=== PATIENT | male | born 1970 ===

== ENCOUNTER 2017-01-02 05:12 | Inpatient (IN) | payer OTHER ==
[2017-01-02] VITALS (14 sets, daily range): BP systolic 118–146; BP diastolic 70–83
[~2017-01-02] VITALS: Ht 175.3 cm; Wt 86.2 kg
[~2017-01-02 05:12] MED LIST: NKM; oxyCONTIN 20mg tab ORAL ONE
[2017-01-02] MEDS ORDERED: oxyCONTIN 20mg tab ORAL ONE (06:00)
[2017-01-02] MEDS ORDERED: celeBREX 200mg Cap **SURGERY PATIENTS ONLY ORAL ONE (06:00)
[2017-01-02] MEDS ORDERED: ceFAZolin 1gm in D5W 55ml IVP ONE (06:00)
[2017-01-02] MEDS ORDERED: NS Irrig 1000ml ONE (06:00)
[2017-01-02] MEDS ORDERED: LR 1000ml ONE ×2 (06:00→07:00)
[2017-01-02] MEDS ORDERED: Sterile Water Irrig 1000ml IRRIG ONE (06:00)
[2017-01-02] MEDS ORDERED: Bacitracin 50000 Units Vial ONE (06:30)
[2017-01-02] MEDS ORDERED: Duramorph PF 5mg/10ml amp ONE (06:30)
--- NOTE | 2017-01-02 06:47 | Pre-Procedure Note/Attestation ---
Pre-Procedure Note/Attestation Complete Prior to Procedure Planned Procedure: left Procedure Narrative: left total hip arthroplasty Indications for Procedure Pre-Operative Diagnosis: left hip arthritis Attestation I attest that I discussed the nature of the procedure; its benefits; risks and complications; and alternatives (and the risks and benefits of such alternatives ), prior to the procedure, with the patient (or the patient's legal patient accounting representative). I attest that, if there was a reasonable possibility of needing a blood transfusion, the patient (or the patient's legal patient accounting representative) was given the [facility] standardized written summary, pursuant to the Terry Brenda Blood Safety Act ([place] Health and Safety Code # 1645, as amended). I attest that I re-evaluated the patient just prior to the surgery and that there has been no change in the patient's H&P, except as documented below: NONE COLIN LEAL January 02, 2017 06:47
[2017-01-02] MEDS ORDERED: fentaNYL 100 mcg/2 mL IV ONE (07:00)
[2017-01-02] MEDS ORDERED: Propofol 10mg/ml 100ml btl IV ONE (07:00)
[2017-01-02] MEDS ORDERED: D5 1/2NS w/KCl 20mEq 1,000 ML IV SCH (07:04)
[2017-01-02] MEDS ORDERED: Norco 5mg/325mg tab ORAL PRN (07:15)
[2017-01-02] MEDS ORDERED: HYDROmorphone 1mg/ml Carpuject SUBQ PRN (07:15)
[2017-01-02] MEDS ORDERED: Milk of Magnesia 30ml Ud ORAL PRN (07:15)
[2017-01-02] MEDS ORDERED: Tranexamic Acid 1,000 MG in NS 55 ML IV ONE (07:30)
[2017-01-02] MEDS ORDERED: Tranexamic Acid 1,000 MG in NS 65 ML IV ONE (07:30)
[2017-01-02] MEDS ORDERED: Tranexamic Acid 1,000 MG in NS 110 ML IVPB SCH (08:00)
[2017-01-02] MEDS ORDERED: LR 1000ml 1,000 ML IVLG SCH (08:02)
--- NOTE | 2017-01-02 08:02 | Anethesia Preoperative Eval ---
Anesthesia Pre-op PMH/ROS General Date of Evaluation: January 02, 2017 Time of Evaluation: 06:50 Anesthesiologist: Luz ASA Score: ASA 2 Mallampati Score Class I : Soft palate, uvula, fauces, pillars visible Class II: Soft palate, uvula, fauces visible Class III: Soft palate, base of uvula visible Class IV: Only hard plate visible Mallampati Classification: Class II Surgeon: Beba Diagnosis: L hip DJD Surgical Procedure: L total hip arthroplasty Anesthesia History: none Family History: no anesthesia problems Allergies: Coded Allergies: No Known Allergies (Unverified , 12/28/16) Medications: see eMAR Past Medical History Cardiovascular: Denies: CAD, HTN, CT, arrhythmia, other, valve dz Pulmonary: Denies: COPD, ULICES, asthma, other Gastrointestinal/Genitourinary: Reports: GERD - mild, Denies: CRI, ESRD, other Neurologic/Psychiatric: Reports: other - chronic pain, Denies: CVA, TIA, dementia, depression/anxiety Endocrine: Denies: DM, hypothyroidism, other, steroids HEENT: Denies: [place] (L), [place] (R), cataract (L), cataract (R), glaucoma, other Hematology/Immune: Denies: DVT, anemia, bleeding disorder, other Musculoskeletal/Integumentary: Reports: DJD, Denies: DDD, OA, RA, edema, other PMH Narrative: as above PSxH Narrative: bilateral feet Anesthesia Pre-op Phys. Exam Physician Exam Last Vital Signs Date Time Temp Pulse Resp B/P Pulse Ox O2 Delivery O2 Flow Rate FiO2 01/02/17 05:48 97.7 60 18 123/78 99 Room Air Constitutional: NAD Neurologic: CN 2-12 intact Cardiovascular: RRR, no M/R/G Respiratory: CTA Gastrointestinal: S/NT/ND Airway Exam Mallampati Score: Class II MO: full Neck: flexible ROM: full Teeth: intact Dentures: no lower, no upper Anesthesia Pre-op A/P Labs see chart Studies Pre-op Studies: EKG, CXR Risk Assessment & Plan Assessment: ASA 2 Plan: SAB with intrathecal Duramorph vs GA. Status Change Before Surgery: No Pre-Antibiotics Drug: Ancef 2gr. Given Within 1 Hr of Incision: Yes Time Given: 07:45 YESENIA OZUNA M.D. January 02, 2017 08:02
[2017-01-02] MEDS ORDERED: DiphenhydrAMINE 50mg/ml Inj IVP PRN (08:15)
[2017-01-02] MEDS ORDERED: Meperidine 25mg/0.5ml Inj IM PRN (08:15)
[2017-01-02] MEDS ORDERED: Hydromorphone 0.5mg/0.5ml inj IVP PRN (08:15)
--- NOTE | 2017-01-02 09:34 | Brief Operative Note ---
Immediate Post Operative Note Operative Note Chief Complaint: left hip pain Pre-op Diagnosis: left hip arthritis Procedure: left tung Post-op Diagnosis: same as pre-op Findings: consistent w/pre-op dx studies Surgeon: md dru Trench Pipe Layer Helper: stefanie burgess Anesthesiologist: md dipika Anesthesia: general Specimen: yes Complications: none Condition: stable Estimated Blood Loss: minimal Drains: none Implant(s) used?: Yes - merritt and nephRAYSA Burkett January 02, 2017 09:34
--- NOTE | 2017-01-02 12:23 | Immediate Post-Op Evaluation ---
Immediate Post-Op Evalulation Immediate Post-Op Evalulation Procedure: L total hip arthroplasty Date of Evaluation: January 02, 2017 Time of Evaluation: 09:38 IV Fluids: 1500 Blood Products: none Estimated Blood Loss: 150 Urinary Output: 100 Blood Pressure Systolic: 116 Blood Pressure Diastolic: 58 Pulse Rate: 72 Respiratory Rate: 20 O2 Sat by Pulse Oximetry: 98 Temperature (Fahrenheit): 97.6 Pain Score (1-10): 1 Nausea: No Vomiting: No Complications none Patient Status: awake, patent, none Hydration Status: adequate YESENIA OZUNA M.D. January 02, 2017 12:23
--- NOTE | 2017-01-02 12:46 | Diagnostic Imaging Report ---
Indication: pain Findings: Single AP view of the pelvis was performed. Left total hip arthroplasty noted. On this single projection, no alignment issues identified. No fracture identified. Theodore catheter noted. Osteoarthritis of the right hip is present. Impression: Status post left total hip replacement
--- NOTE | 2017-01-02 13:06 | Diagnostic Imaging Report ---
Indication: pain Findings: Single AP view of the pelvis was performed. Intraoperative portable x-ray of the lower pelvis demonstrates a left total hip replacement in progress. Theodore catheter is noted. Impression: Intraoperative imaging during left hip replacement
[2017-01-02] MEDS: Docusate 100mg cap ORAL SCH ×2 (14:46→18:01)
[2017-01-02] MEDS: D5 1/2NS w/KCl 20mEq 1,000 ML IV SCH (14:46)
[2017-01-02] MEDS: ceFAZolin sod 2 GM in D5W 110 ML IV SCH ×2 (15:59→23:30)
--- NOTE | 2017-01-02 19:22 | General Progress Note ---
Assessment/Plan Status Narrative s/p THR Perioperative expected bloo dloss Assessment/Plan PT OT DVT PROPHYALXIS ERIOPERATIVE ANTIBIOTIC PROPHYALIXS PAIN CONTORL Subjective Date patient seen: January 02, 2017 Time patient seen: 19:21 Constitutional: Reports: no symptoms HEENT: Reports: no symptoms Cardiovascular: Reports: no symptoms Respiratory: Reports: no symptoms Genitourinary: Reports: no symptoms Allergies: Coded Allergies: No Known Allergies (Unverified , 12/28/16) Objective Last 24 Hour Vital Signs Date Time Temp Pulse Resp B/P Pulse Ox O2 Delivery O2 Flow Rate FiO2 01/02/17 16:24 98.0 80 20 138/78 98 Room Air 01/02/17 14:30 98.2 82 20 144/82 99 Room Air 01/02/17 12:30 97.3 78 20 146/78 99 Room Air 01/02/17 12:23 72 20 98 01/02/17 11:30 97.2 70 16 133/77 100 Nasal Cannula 2.0 01/02/17 11:00 97.8 60 18 120/81 99 Nasal Cannula 3.0 01/02/17 10:45 62 18 125/75 97 Nasal Cannula 3.0 01/02/17 10:30 63 16 129/80 96 Nasal Cannula 3.0 01/02/17 10:15 61 18 133/83 100 Nasal Cannula 3.0 01/02/17 10:00 58 15 118/78 100 Simple Mask 6.0 01/02/17 09:45 59 14 128/74 100 Simple Mask 6.0 01/02/17 09:30 66 15 141/70 100 Simple Mask 6.0 01/02/17 09:23 97.5 70 18 123/78 100 Simple Mask 6.0 01/02/17 05:48 97.7 60 18 123/78 99 Room Air Intake and Output 01/01/17 01/02/17 19:00 07:00 # Voids 1 Height (Feet): 5 Height (Inches): 9.00 Weight (Pounds): 190 General Appearance: WD/WN EENT: PERRL/EOMI Neck: supple Cardiovascular: normal peripheral pulses, regular rhythm, no JVD Respiratory/Chest: lungs clear Abdomen: non tender, soft CRICKET GUTIERREZ January 02, 2017 19:22
[2017-01-02] MEDS: oxyCONTIN 20mg tab ORAL SCH (20:55)
[2017-01-02] MEDS: Norco 7.5mg/325mg tab ORAL PRN (20:56)
--- NOTE | 2017-01-02 21:38 | Operative Note - Dictated ---
DATE OF OPERATION: 01/02/2017 PREOPERATIVE DIAGNOSIS: Left hip end-stage arthritis. POSTOPERATIVE DIAGNOSIS: Left hip end-stage arthritis. PROCEDURE: Left total hip arthroplasty using M[employer]hew system size 54 acetabular cup, with a size 7 anthology proximally coated stem, with a 20-degree lip ultra cross-linked polyethylene, with a 36 mm Oxinium head. SURGEON: Burt Yoder M.D. TANNING WHEEL FILLER: Ekaterina Contreras PA-C. ANESTHESIOLOGIST: Tariq Escobar M.D. ANESTHESIA: General endotracheal anesthesia. ESTIMATED BLOOD LOSS: 150 mL. COMPLICATIONS: None. BRIEF HISTORY: The patient is a pleasant 46-year-old gentleman, who has had ongoing left hip pain. His x-ray showed end-stage arthritis. He failed nonoperative treatment. After full discussion of risks and benefits of the surgeon and complications associated with it including infection, bleeding, neurovascular complication, possibility of leg length discrepancy, DVT, PEs, and other complication that may arise, he opted for surgical treatment as described above. OPERATIVE PROCEDURE: The patient was brought to the operating table and was placed supine. All pressure points well padded. General endotracheal anesthesia was induced. Left foot was prepped and draped in the usual sterile fashion. After that the patient was placed in right lateral decubitus position. All pressure points were padded. The patient was stabilized using pegboard. The left hip was prepped and draped in the usual sterile fashion. The standard posterior lateral approach to the hip was then taken and the tensor fascia and gluteal fascia was opened and retractors were placed in. Short external rotators were released and the capsule was teed. The hip was dislocated and a standard femoral neck cut was performed. The femoral head was removed. The anterior acetabular retractors were placed and appropriate retractors were placed around the hip and acetabulum was exposed, the labrum was resected, and sequential reaming of the acetabulum was performed to medialize slightly. At this point, sequential reaming was performed in about 40 degrees of anteversion and 45 degrees of inclination to a 54 mm reaming. Once this was completed, the trialing was performed and 54 mm acetabulum appeared to be a good size. At this point, a 54 mm R3 acetabulum with 3 dome screw holes were placed in and locked in appropriate anteversion and inclination without any complication. Once this was completed, the stability was checked and it was excellent. However, two additional screws 125 mm and 120 mm was placed for additional security. This provided excellent positioning and stability of the acetabular cup. At this point, a 20-degree lip poly was then locked in after the area was thoroughly irrigated and the security of the locking of the polyethylene was checked and it was excellent. Once this was completed, the retractors were removed and care was given to the femur. The retractors were removed around the acetabulum. The retractors were placed around the femur. arc cutter plasma arc was used to lateralize and canal finder was used. Sequential broaching was performed all the way up to size 7 broach, which provided excellent fill of the canal and good rotational axial stability. At this point, the size 7 broach was placed in and a standard neck and a 36 mm head was applied and the whole construct was reduced. Range of motion was checked, leg length was checked, and stability was checked. There was excellent range of motion. Leg lengths were equal and stability was checked at 0 to 30 degrees 45 degrees, and 90 degrees of flexion all the way up to about 70 degrees internal rotation with excellent stability. At this point, the intraoperative x-rays were obtained and all positions were checked and appeared to be perfect. The left hip was then dislocated and the trial components were removed and the hip was thoroughly irrigated using copious amount of fluid. At this point, size 7 anthology stem was placed in and locked in without any complication. At this point, trialing was performed. Again 0 length head with 36 mm head was then applied and was reduced back into the femoral screws back without any complications. An Oxinium head was used and Chapa taper was dried prior to locking the head onto the neck. Once this was completed, the position, range of motion, stability was rechecked and it was excellent stability and a great range of motion of the hip. At this point, the short external rotators were repaired using a drill hole and #2 FiberWire suture. The capsule was repaired back onto the trochanter. The tensor fascia was then closed using #1 Vicryl suture. Subcutaneous tissue was closed using 2-0 Vicryl suture. Skin was closed using 3-0 Monocryl suture. All instrument counts and lap counts were correct. Intraoperative x-rays were obtained and there was excellent position of the instruments and leg lengths appeared to be equal. Burt Yoder M.D. DR: Sally JOB#: [id number] CC: SHABANA
[2017-01-03] MEDS: D5 1/2NS w/KCl 20mEq 1,000 ML IV SCH ×2 (03:14→16:40)
[2017-01-03 04:00] VITALS: BP 144/87
[2017-01-03 06:12] LABS: BASOPHILS % (AUTO) 0.7 % (0.0-2.0); LYMPHOCYTES % (AUTO) 14.5 % (20.0-45.0); MEAN CORPUSCULAR HEMOGLOBIN 31.8 PG (27.0-31.0); MEAN CORPUSCULAR HGB CONC 34.6 G/DL (32.0-36.0); MEAN CORPUSCULAR VOLUME 92 FL (80-99); MEAN PLATELET VOLUME 7.5 FL (6.5-10.1); MONOCYTES % (AUTO) 14.6 % (1.0-10.0); NEUTROPHILS % (AUTO) 69.2 % (45.0-75.0); PLATELET COUNT 242 K/UL (150-450); RED BLOOD COUNT 3.83 M/UL (4.70-6.10); RED CELL DISTRIBUTION WIDTH 11.4 % (11.6-14.8)
[2017-01-03 06:40] LABS: ANION GAP 11 (5-15); CALCIUM 8.2 mg/dL (8.6-10.2); CARBON DIOXIDE 31 mEQ/L (20-30); CHLORIDE 95 mEQ/L (98-107); CREATININE 0.9 mg/dL (0.7-1.2); GLOMERULAR FILTRATION RATE > 60 mL/min (>60); HEMOLYSIS 4; SODIUM 137 mEQ/L (135-145)
[2017-01-03 07:55] VITALS: BP 132/70
--- NOTE | 2017-01-03 08:21 | Orthopedic Progress Note ---
Orthopedic - Progress Note Subjective Symptoms: c/o post-op hip pain, other - febrile overnight and this morning. WBC normal Objective Vital Signs Laboratory Tests Test 01/03/17 05:20 White Blood Count 9.0 K/UL (4.8-10.8) Red Blood Count 3.83 M/UL (4.70-6.10) L Hemoglobin 12.2 G/DL (14.2-18.0) L Hematocrit 35.3 % (42.0-52.0) L Mean Corpuscular Volume 92 FL (80-99) Mean Corpuscular Hemoglobin 31.8 PG (27.0-31.0) H Mean Corpuscular Hemoglobin Concent 34.6 G/DL (32.0-36.0) Red Cell Distribution Width 11.4 % (11.6-14.8) L Platelet Count 242 K/UL (150-450) Mean Platelet Volume 7.5 FL (6.5-10.1) Neutrophils (%) (Auto) 69.2 % (45.0-75.0) Lymphocytes (%) (Auto) 14.5 % (20.0-45.0) L Monocytes (%) (Auto) 14.6 % (1.0-10.0) H Eosinophils (%) (Auto) 1.0 % (0.0-3.0) Basophils (%) (Auto) 0.7 % (0.0-2.0) Sodium Level 137 mEQ/L (135-145) Potassium Level 4.0 mEQ/L (3.4-4.9) Chloride Level 95 mEQ/L (98-107) L Carbon Dioxide Level 31 mEQ/L (20-30) H Anion Gap 11 (5-15) Blood Urea Nitrogen 8 mg/dL (7-23) Creatinine 0.9 mg/dL (0.7-1.2) Estimat Glomerular Filtration Rate > 60 mL/min (>60) Glucose Level 115 mg/dL (74-106) H Calcium Level 8.2 mg/dL (8.6-10.2) L Last 24 Hour Vital Signs Date Time Temp Pulse Resp B/P Pulse Ox O2 Delivery O2 Flow Rate FiO2 01/03/17 07:55 103.5 87 18 132/70 94 Room Air 01/03/17 04:00 100.2 99 20 144/87 99 Room Air 01/02/17 23:46 99.9 86 20 130/72 96 Room Air 01/02/17 22:00 99.9 01/02/17 16:24 98.0 80 20 138/78 98 Room Air 01/02/17 14:30 98.2 82 20 144/82 99 Room Air 01/02/17 12:30 97.3 78 20 146/78 99 Room Air 01/02/17 12:23 72 20 98 01/02/17 11:30 97.2 70 16 133/77 100 Nasal Cannula 2.0 01/02/17 11:00 97.8 60 18 120/81 99 Nasal Cannula 3.0 01/02/17 10:45 62 18 125/75 97 Nasal Cannula 3.0 01/02/17 10:30 63 16 129/80 96 Nasal Cannula 3.0 01/02/17 10:15 61 18 133/83 100 Nasal Cannula 3.0 01/02/17 10:00 58 15 118/78 100 Simple Mask 6.0 01/02/17 09:45 59 14 128/74 100 Simple Mask 6.0 01/02/17 09:30 66 15 141/70 100 Simple Mask 6.0 01/02/17 09:23 97.5 70 18 123/78 100 Simple Mask 6.0 I&O Intake and Output 01/02/17 01/03/17 19:00 07:00 Intake Total 1007.5 ml 1772.5 ml Output Total 1700 ml 3075 ml Balance -692.5 ml -1302.5 ml Intake Oral 360 ml 800 ml IV Total 647.5 ml 972.5 ml Output Urine Total 1700 ml 3075 ml Wound: clean, dry, intact Drains: none Neuro Status: normal Vascular Status: normal Additional Comments Xray reviewed: excellent Assessment Post-op Diagnosis POD 1 Procedure Performed left tung Plan Plan: PT, pain management, discharge plan - likely home on sunday with services and DME, other - tylenol for fever- monitor. Likely post operative in nature. Check CBC tomorrow. RAYSA ORTIZ January 03, 2017 08:21
[2017-01-03] MEDS: Docusate 100mg cap ORAL SCH ×3 (08:27→17:28)
[2017-01-03] MEDS: oxyCONTIN 20mg tab ORAL SCH ×2 (08:28→20:14)
[2017-01-03] MEDS: celeBREX 200mg Cap **SURGERY PATIENTS ONLY ORAL SCH (08:29)
[2017-01-03] MEDS: Enoxaparin 40mg Inj SUBQ SCH (08:33)
--- NOTE | 2017-01-03 08:59 | 48 Hour Post Anesthesia Eval ---
Post Anesthesia Evaluation Procedure: L total hip arthroplasty Date of Evaluation: January 03, 2017 Time of Evaluation: 06:40 Blood Pressure Systolic: 144 0: 87 Pulse Rate: 99 Respiratory Rate: 20 Temperature (Fahrenheit): 100.2 O2 Sat by Pulse Oximetry: 99 Airway: patent Nausea: No Vomiting: No Pain Intensity: 2 Hydration Status: adequate Cardiopulmonary Status: at baseline Mental Status/LOC: patient returned to baseline Follow-up Care/Observations: Monitor fever, primary team to treat as warranted Post-Anesthesia Complications: 0 Follow-up care needed: N/A - further care as per primary team DERECK LOPEZ M.D. January 03, 2017 08:59
[2017-01-03 12:03] VITALS: BP 118/71
[2017-01-03 16:06] VITALS: BP 130/75
[2017-01-03] MEDS: Norco 7.5mg/325mg tab ORAL PRN (17:31)
--- NOTE | 2017-01-03 18:14 | General Progress Note ---
Assessment/Plan Assessment/Plan s/p tot5la hip replacemtn doign well pt ot dvt prophyalxis apin is under control monitor prudencio hip precaution Subjective Date patient seen: January 03, 2017 Time patient seen: 18:12 Constitutional: Reports: no symptoms HEENT: Reports: no symptoms Cardiovascular: Reports: no symptoms Respiratory: Reports: no symptoms Gastrointestinal/Abdominal: Reports: no symptoms Genitourinary: Reports: no symptoms Allergies: Coded Allergies: No Known Allergies (Unverified , 12/28/16) Objective Last 24 Hour Vital Signs Date Time Temp Pulse Resp B/P Pulse Ox O2 Delivery O2 Flow Rate FiO2 01/03/17 16:06 99.7 87 20 130/75 97 Room Air 01/03/17 12:03 98.2 78 22 118/71 96 Room Air 01/03/17 09:24 100.8 01/03/17 09:24 100.8 01/03/17 09:01 99 20 99 01/03/17 07:55 102.0 87 18 132/70 94 Room Air 01/03/17 04:00 100.2 99 20 144/87 99 Room Air 01/02/17 23:46 99.9 86 20 130/72 96 Room Air 01/02/17 22:00 99.9 Intake and Output 01/02/17 01/03/17 19:00 07:00 Intake Total 1007.5 ml 1772.5 ml Output Total 1700 ml 3075 ml Balance -692.5 ml -1302.5 ml Intake Oral 360 ml 800 ml IV Total 647.5 ml 972.5 ml Output Urine Total 1700 ml 3075 ml Laboratory Tests 01/03/17 05:20: White Blood Count 9.0, Red Blood Count 3.83L, Hemoglobin 12.2L, Hematocrit 35.3L , Mean Corpuscular Volume 92, Mean Corpuscular Hemoglobin 31.8H, Mean Corpuscular Hemoglobin Concent 34.6, Red Cell Distribution Width 11.4L, Platelet Count 242, Mean Platelet Volume 7.5, Neutrophils (%) (Auto) 69.2, Lymphocytes (%) (Auto) 14.5L, Monocytes (%) (Auto) 14.6H, Eosinophils (%) (Auto ) 1.0, Basophils (%) (Auto) 0.7, Sodium Level 137, Potassium Level 4.0, Chloride Level 95L, Carbon Dioxide Level 31H, Anion Gap 11, Blood Urea Nitrogen 8, Creatinine 0.9, Estimat Glomerular Filtration Rate > 60, Glucose Level 115H, Calcium Level 8.2L Height (Feet): 5 Height (Inches): 9.00 Weight (Pounds): 190 General Appearance: WD/WN EENT: PERRL/EOMI Neck: non-tender Cardiovascular: normal rate, regular rhythm, no JVD Respiratory/Chest: lungs clear Abdomen: soft CRICKET GUTIERREZ January 03, 2017 18:14
[2017-01-03 20:00] VITALS: BP 116/75
[2017-01-04] VITALS: BP 130/68
[2017-01-04 04:00] VITALS: BP 120/70
[2017-01-04 07:39] VITALS: BP 129/85
--- NOTE | 2017-01-04 07:57 | Orthopedic Progress Note ---
Orthopedic - Progress Note Subjective Symptoms: c/o post-op hip pain Additional Comments Doing well with pain. Minimal. Ambulating with PT. Eating well. Objective Vital Signs Last 24 Hour Vital Signs Date Time Temp Pulse Resp B/P Pulse Ox O2 Delivery O2 Flow Rate FiO2 01/04/17 07:39 97.9 83 21 129/85 95 Room Air 01/04/17 04:00 98.1 80 18 120/70 97 Room Air 01/04/17 00:00 98.4 80 18 130/68 97 Room Air 01/03/17 20:00 99.5 85 19 116/75 97 Room Air 01/03/17 18:30 99.7 01/03/17 16:06 99.7 87 20 130/75 97 Room Air 01/03/17 12:03 98.2 78 22 118/71 96 Room Air 01/03/17 09:24 100.8 01/03/17 09:24 100.8 01/03/17 09:01 99 20 99 I&O Intake and Output 01/03/17 01/04/17 19:00 07:00 Intake Total 1600 ml Output Total 2525 ml 1100 ml Balance -925 ml -1100 ml Intake Oral 850 ml IV Total 750 ml Output Urine Total 2525 ml 1100 ml # Voids 1 3 Wound: clean, dry, intact Drains: none Neuro Status: normal Additional Comments Dressing clean and dry Assessment Post-op Diagnosis Doing well following REENA Plan Plan: PT, pain management, discharge to home Additional Comments Please set up home PT/instruments for anticipate discharge tomorrow COLIN LEAL January 04, 2017 07:57
[2017-01-04 08:12] LABS: BASOPHILS % (AUTO) 0.5 % (0.0-2.0); EOSINOPHILS % (AUTO) 0.4 % (0.0-3.0); LYMPHOCYTES % (AUTO) 8.1 % (20.0-45.0); MEAN CORPUSCULAR HGB CONC 36.3 G/DL (32.0-36.0); MEAN CORPUSCULAR VOLUME 94 FL (80-99); MEAN PLATELET VOLUME 6.7 FL (6.5-10.1); MONOCYTES % (AUTO) 9.9 % (1.0-10.0); NEUTROPHILS % (AUTO) 81.1 % (45.0-75.0); PLATELET COUNT 198 K/UL (150-450); RED BLOOD COUNT 3.41 M/UL (4.70-6.10); RED CELL DISTRIBUTION WIDTH 11.4 % (11.6-14.8); WHITE BLOOD COUNT 11.2 K/UL (4.8-10.8)
[2017-01-04] MEDS: celeBREX 200mg Cap **SURGERY PATIENTS ONLY ORAL SCH (08:34)
[2017-01-04] MEDS: Docusate 100mg cap ORAL SCH ×3 (08:35→18:24)
[2017-01-04] MEDS: oxyCONTIN 20mg tab ORAL SCH ×2 (08:35→21:31)
[2017-01-04] MEDS: Enoxaparin 40mg Inj SUBQ SCH (08:39)
[2017-01-04 12:00] VITALS: BP 139/80
--- NOTE | 2017-01-04 14:17 | General Progress Note ---
Assessment/Plan Assessment/Plan s/p thr edema lower extremtiy plan wear nellie hose stocking pt ot dvt prophyalis will [id number] venous duplex Subjective Date patient seen: January 04, 2017 Time patient seen: 14:15 Constitutional: Reports: no symptoms HEENT: Reports: no symptoms Cardiovascular: Reports: no symptoms Respiratory: Reports: no symptoms Allergies: Coded Allergies: No Known Allergies (Unverified , 12/28/16) Subjective has leg swelling Objective Last 24 Hour Vital Signs Date Time Temp Pulse Resp B/P Pulse Ox O2 Delivery O2 Flow Rate FiO2 01/04/17 12:00 97.7 86 20 139/80 95 Room Air 01/04/17 07:39 97.9 83 21 129/85 95 Room Air 01/04/17 04:00 98.1 80 18 120/70 97 Room Air 01/04/17 00:00 98.4 80 18 130/68 97 Room Air 01/03/17 20:00 99.5 85 19 116/75 97 Room Air 01/03/17 18:30 99.7 01/03/17 16:06 99.7 87 20 130/75 97 Room Air Intake and Output 01/03/17 01/04/17 19:00 07:00 Intake Total 1600 ml Output Total 2525 ml 1100 ml Balance -925 ml -1100 ml Intake Oral 850 ml IV Total 750 ml Output Urine Total 2525 ml 1100 ml # Voids 1 3 Laboratory Tests 01/04/17 07:40: White Blood Count 11.2H, Red Blood Count 3.41L, Hemoglobin 11.6L, Hematocrit 31.9L, Mean Corpuscular Volume 94, Mean Corpuscular Hemoglobin 34.0H, Mean Corpuscular Hemoglobin Concent 36.3H, Red Cell Distribution Width 11.4L, Platelet Count 198, Mean Platelet Volume 6.7, Neutrophils (%) (Auto) 81.1H, Lymphocytes (%) (Auto) 8.1L, Monocytes (%) (Auto) 9.9, Eosinophils (%) (Auto) 0.4, Basophils (%) (Auto) 0.5 Height (Feet): 5 Height (Inches): 9.00 Weight (Pounds): 190 General Appearance: WD/WN EENT: normal ENT inspection Neck: non-tender Cardiovascular: no JVD Respiratory/Chest: lungs clear Abdomen: soft Extremities: other - thre re is soime edema CRICKET GUTIERREZ January 04, 2017 14:17
[2017-01-04] MEDS ORDERED: Tubing IV Secondary IV ONE (15:09)
[2017-01-04 16:00] VITALS: BP 130/70
[2017-01-04 20:00] VITALS: BP 121/68
[2017-01-05] VITALS: BP 125/69
[2017-01-05 04:00] VITALS: BP 112/71
[2017-01-05 07:22] LABS: BASOPHILS % (AUTO) 1.1 % (0.0-2.0); EOSINOPHILS % (AUTO) 1.6 % (0.0-3.0); LYMPHOCYTES % (AUTO) 11.3 % (20.0-45.0); MEAN CORPUSCULAR HEMOGLOBIN 30.9 PG (27.0-31.0); MEAN CORPUSCULAR HGB CONC 34.1 G/DL (32.0-36.0); MEAN CORPUSCULAR VOLUME 91 FL (80-99); MEAN PLATELET VOLUME 7.4 FL (6.5-10.1); MONOCYTES % (AUTO) 13.9 % (1.0-10.0); NEUTROPHILS % (AUTO) 72.1 % (45.0-75.0); PLATELET COUNT 242 K/UL (150-450); RED BLOOD COUNT 3.45 M/UL (4.70-6.10); WHITE BLOOD COUNT 9.3 K/UL (4.8-10.8)
[2017-01-05 08:00] VITALS: BP 134/71
[2017-01-05] MEDS: celeBREX 200mg Cap **SURGERY PATIENTS ONLY ORAL SCH (08:25)
[2017-01-05] MEDS: Docusate 100mg cap ORAL SCH ×3 (08:25→17:59)
[2017-01-05] MEDS: oxyCONTIN 20mg tab ORAL SCH ×2 (08:26→21:07)
[2017-01-05] MEDS: Enoxaparin 40mg Inj SUBQ SCH ×2 (08:29→18:12)
--- NOTE | 2017-01-05 08:38 | Orthopedic Progress Note ---
Orthopedic - Progress Note Subjective Symptoms: other - pt noted to have LE DVT. started on coumadin Objective Vital Signs Laboratory Tests Test 01/05/17 06:10 White Blood Count 9.3 K/UL (4.8-10.8) Red Blood Count 3.45 M/UL (4.70-6.10) L Hemoglobin 10.7 G/DL (14.2-18.0) L Hematocrit 31.3 % (42.0-52.0) L Mean Corpuscular Volume 91 FL (80-99) Mean Corpuscular Hemoglobin 30.9 PG (27.0-31.0) Mean Corpuscular Hemoglobin Concent 34.1 G/DL (32.0-36.0) Red Cell Distribution Width 11.0 % (11.6-14.8) L Platelet Count 242 K/UL (150-450) Mean Platelet Volume 7.4 FL (6.5-10.1) Neutrophils (%) (Auto) 72.1 % (45.0-75.0) Lymphocytes (%) (Auto) 11.3 % (20.0-45.0) L Monocytes (%) (Auto) 13.9 % (1.0-10.0) H Eosinophils (%) (Auto) 1.6 % (0.0-3.0) Basophils (%) (Auto) 1.1 % (0.0-2.0) Last 24 Hour Vital Signs Date Time Temp Pulse Resp B/P Pulse Ox O2 Delivery O2 Flow Rate FiO2 01/05/17 04:00 98.2 82 18 112/71 99 Room Air 01/05/17 00:00 98.1 84 18 125/69 99 Room Air 01/04/17 23:30 99.9 01/04/17 20:00 99.9 90 18 121/68 97 Room Air 01/04/17 16:00 98.2 85 20 130/70 95 Room Air 01/04/17 12:00 97.7 86 20 139/80 95 Room Air I&O Intake and Output 01/04/17 01/05/17 19:00 07:00 Intake Total 500 ml Output Total 275 ml Balance -275 ml 500 ml Intake Oral 500 ml Output Urine Total 275 ml # Voids 2 2 Wound: clean, dry, intact Drains: none Neuro Status: normal Vascular Status: normal Assessment Post-op Diagnosis POD 3 Procedure Performed left tung Plan Plan: discharge plan - Dr. Nicholas to coordinate d/c over the weekend once stable on coumadin. F/u with Dr. Valencia in 2 weeks RAYSA ORTIZ January 05, 2017 08:38
[2017-01-05 10:06] LABS: PROTHROMBIN TIME 10.1 SEC (9.30-11.50)
[2017-01-05] MEDS ORDERED: Warfarin Sodium 7.5mg ORAL ONE (10:45)
--- NOTE | 2017-01-05 11:29 | Diagnostic Imaging Report ---
APPROVED REPORT CPT Code: 93937 Present Symptoms Lower Extremity Pain: Left Lower Extremity Edema: Left Comments: Recent left hip replacement. RIGHT LEG: Venous imaging reveals acute thrombus in the popliteal vein. The remainder of the deep venous system is within normal limits. There is no evidence of thrombus in the calf veins. Greater saphenous vein also within normal limits. LEFT LEG: Venous imaging reveals acute thrombus in the common femoral and popliteal veins. The remainder of the deep venous system is within normal limits. There is no evidence of thrombus in the calf veins. Greater saphenous vein also within normal limits. MARGARET Keene was notified of abnormal results at 16:55 hrs.
[2017-01-05 12:00] VITALS: BP 133/74
[2017-01-05 16:00] VITALS: BP 133/80
--- NOTE | 2017-01-05 19:29 | General Progress Note ---
Assessment/Plan Status Narrative notedto have non occlusive clot in both popliteal and left femoral no k nown historyfo vte started on lovenox 40 bid adn coumdin 7.5 mg given will monitor will want him tohave an inr around 2 willfollow Assessment/Plan s/p thr edema lower extremtiy plan wear nellie hose stocking pt ot dvt prophyalis will [id number] venous duplex Subjective Date patient seen: January 05, 2017 Time patient seen: 19:27 Constitutional: Reports: no symptoms HEENT: Reports: no symptoms Cardiovascular: Reports: no symptoms Respiratory: Reports: no symptoms Allergies: Coded Allergies: No Known Allergies (Unverified , 12/28/16) Subjective has leg swelling Objective Last 24 Hour Vital Signs Date Time Temp Pulse Resp B/P Pulse Ox O2 Delivery O2 Flow Rate FiO2 01/05/17 17:27 98.2 01/05/17 16:00 98.2 87 20 133/80 98 Room Air 01/05/17 12:00 96.4 86 19 133/74 97 Room Air 01/05/17 09:25 98.2 01/05/17 08:00 99.1 86 18 134/71 97 Room Air 01/05/17 04:00 98.2 82 18 112/71 99 Room Air 01/05/17 00:00 98.1 84 18 125/69 99 Room Air 01/04/17 20:00 99.9 90 18 121/68 97 Room Air Intake and Output 01/04/17 01/05/17 19:00 07:00 Intake Total 500 ml Output Total 275 ml Balance -275 ml 500 ml Intake Oral 500 ml Output Urine Total 275 ml # Voids 2 2 Laboratory Tests 01/05/17 06:10: White Blood Count 9.3, Red Blood Count 3.45L, Hemoglobin 10.7L, Hematocrit 31.3L , Mean Corpuscular Volume 91, Mean Corpuscular Hemoglobin 30.9, Mean Corpuscular Hemoglobin Concent 34.1, Red Cell Distribution Width 11.0L, Platelet Count 242, Mean Platelet Volume 7.4, Neutrophils (%) (Auto) 72.1, Lymphocytes (%) (Auto) 11.3L, Monocytes (%) (Auto) 13.9H, Eosinophils (%) (Auto ) 1.6, Basophils (%) (Auto) 1.1 01/05/17 09:20: Prothrombin Time 10.1, Prothromb Time International Ratio 1.0 Height (Feet): 5 Height (Inches): 9.00 Weight (Pounds): 190 General Appearance: WD/WN EENT: PERRL/EOMI Neck: non-tender Cardiovascular: no JVD Respiratory/Chest: lungs clear Abdomen: soft CRICKET GUTIERREZ January 05, 2017 19:29
[2017-01-05 20:00] VITALS: BP 129/68
[2017-01-06] VITALS: BP 116/68
[2017-01-06] MEDS: celeBREX 200mg Cap **SURGERY PATIENTS ONLY ORAL SCH ×2 (01:38→09:00)
[2017-01-06 04:00] VITALS: BP 130/78
[2017-01-06 06:27] LABS: BASOPHILS % (AUTO) 0.8 % (0.0-2.0); EOSINOPHILS % (AUTO) 3.1 % (0.0-3.0); LYMPHOCYTES % (AUTO) 18.5 % (20.0-45.0); MEAN CORPUSCULAR HEMOGLOBIN 30.9 PG (27.0-31.0); MEAN CORPUSCULAR VOLUME 91 FL (80-99); MEAN PLATELET VOLUME 7.3 FL (6.5-10.1); MONOCYTES % (AUTO) 15.5 % (1.0-10.0); PLATELET COUNT 325 K/UL (150-450); RED BLOOD COUNT 3.56 M/UL (4.70-6.10); WHITE BLOOD COUNT 7.4 K/UL (4.8-10.8)
[2017-01-06 06:28] LABS: INR 1.2 (0.9-1.1); PROTHROMBIN TIME 11.8 SEC (9.30-11.50)
[2017-01-06 08:00] VITALS: BP 124/74
[2017-01-06] MEDS: Docusate 100mg cap ORAL SCH ×2 (08:46→13:11)
[2017-01-06] MEDS: oxyCONTIN 20mg tab ORAL SCH (08:47)
[2017-01-06] MEDS ORDERED: Enoxaparin 40mg Inj SUBQ SCH (09:00)
[2017-01-06 09:30] LABS: INR 1.3 (0.9-1.1); PROTHROMBIN TIME 12.8 SEC (9.30-11.50)
[2017-01-06 12:00] VITALS: BP 123/79
--- NOTE | 2017-01-06 13:41 | General Progress Note ---
Assessment/Plan Assessment/Plan s/p hip replacemet first duplex showe dboth leg haivng non occulsive thrombus today ultra sound shows no DVT willd aidan on lovenox BId and consider keeping him on low dose anticoag 6 weeks to 3 months after that Subjective Date patient seen: January 06, 2017 Constitutional: Reports: no symptoms HEENT: Reports: no symptoms Cardiovascular: Reports: no symptoms Respiratory: Reports: no symptoms Gastrointestinal/Abdominal: Reports: no symptoms Allergies: Coded Allergies: No Known Allergies (Unverified , 12/28/16) Subjective has leg swelling Objective Last 24 Hour Vital Signs Date Time Temp Pulse Resp B/P Pulse Ox O2 Delivery O2 Flow Rate FiO2 01/06/17 09:46 98.0 01/06/17 08:00 98.1 80 20 124/74 100 Room Air 01/06/17 04:00 98.0 78 20 130/78 98 Room Air 01/06/17 00:00 98.4 78 20 116/68 98 Room Air 01/05/17 20:00 97.9 79 20 129/68 98 Room Air 01/05/17 17:27 98.2 01/05/17 16:00 98.2 87 20 133/80 98 Room Air Intake and Output 01/05/17 01/06/17 19:00 07:00 Intake Total 640 ml 200 ml Output Total 400 ml Balance 240 ml 200 ml Intake Oral 640 ml 200 ml Output Urine Total 400 ml # Voids 1 3 Laboratory Tests 01/06/17 05:10: White Blood Count 7.4, Red Blood Count 3.56L, Hemoglobin 11.0L, Hematocrit 32.4L , Mean Corpuscular Volume 91, Mean Corpuscular Hemoglobin 30.9, Mean Corpuscular Hemoglobin Concent 34.0, Red Cell Distribution Width 11.0L, Platelet Count 325, Mean Platelet Volume 7.3, Neutrophils (%) (Auto) 62.0, Lymphocytes (%) (Auto) 18.5L, Monocytes (%) (Auto) 15.5H, Eosinophils (%) (Auto ) 3.1H, Basophils (%) (Auto) 0.8, Prothrombin Time 11.8H, Prothromb Time International Ratio 1.2H 01/06/17 09:00: Prothrombin Time 12.8H, Prothromb Time International Ratio 1.3H Height (Feet): 5 Height (Inches): 9.00 Weight (Pounds): 190 General Appearance: WD/WN Neck: non-tender Cardiovascular: no JVD Respiratory/Chest: lungs clear Abdomen: soft Extremities: other - minmal edema CRICKET GUTIERREZ January 06, 2017 13:41
[2017-01-06] MEDS ORDERED: LOVENOX10 M4 SUBQ (13:54)
[2017-01-06] MEDS ORDERED: Warfarin Sodium 7.5mg ORAL SCH (17:00)
--- NOTE | 2017-01-08 11:36 | Diagnostic Imaging Report ---
APPROVED REPORT CPT Code: 26226 Present Symptoms Lower Extremity Pain: Bilateral BILATERAL: Imaging reveals a patent deep venous system bilaterally. There is no evidence of thrombus within the femoral, popliteal or tibial segments. The greater saphenous veins are also within normal limits. Doppler indicates normal spontaneous flow within these segments.
--- NOTE | 2017-01-08 12:32 | Discharge Summary ---
Discharge Summary Hospital Course Date of Admission January 02, 2017 at 05:12 Date of Discharge January 06, 2017 at 14:00 Admitting Diagnosis left hip end stage arthritis Reason for Hospitalization: elective surgery HPI Jon Kilgore is a 46 year old male who was admitted on January 02, 2017 at 05:12 for Traumatic Arthropathy Left Hip Consultations dr Nicholas IM Procedures 5/2 dr Yoder Left total hip arthroplasty Left hip end-stage arthritis. Hospital Course s/p elective surgery pain management PT/OT ambulate IS at bedside and encourage to use dressing C/D/I neuro intact LE edema initial Duplex BLE with bilateral acute DVT (popliteal vein RLE and common femoral and popliteal LLE) started on Lovenox bid repeated Duplex BLE no acute DVT, patent deep venous system bilaterally IM dr Nicholas followed tolerated diet voided freely had BM dc on Lovenox in 6 wks to 3 months, repeat Venous Duplex as outpatient DISCHARGE DIAGNOSIS: Left hip end-stage arthritis. s/p 5/2 Left total hip arthroplasty postoperative pain edema BLE ? acute DVT BLE Discharge Medications Continued Medications: Enoxaparin* (Lovenox*) 40 Mg/0.4 Ml Inj 40 MG SUBQ BID No Known Medications* (NKM - No Known Medications*) . 0 ., 0 Refills Discharge Condition Upon Discharge: stable Discharge Disposition Patient was discharged to Home (01) Discharge Diagnoses: Discharge Instructions Discharge Instructions Special Instructions I have been assigned to complete a D/C Summary on this account. I was not involved in the patient management Josefina Baker NP ([facility]te[place]) January 08, 2017 12:32
== END 2017-01-06 14:00 | disposition home health service (06) | DRG 470 ==
LOC: SDSOVERFLO 05:12 → 3E 10:40
PROC: 0SRB02A Replacement of Left Hip Joint with Metal on Polyethylene Synthetic Substitute, Uncemented, Open Approach (ICD-10-PCS; principal; 2017-01-02 07:00)
DX: M16.12 Unilateral primary osteoarthritis, left hip (principal); G89.18 Other acute postprocedural pain; I82.433 Acute embolism and thrombosis of popliteal vein, bilateral; I82.412 Acute embolism and thrombosis of left femoral vein
CPT/HCPCS: 36415; 72170; 80048; 85025; 85610; 86850; 86900; 86901; 86920; 87081; 93970; 94003; 94150